=== PATIENT | male | born 1975 | race Caucasian/White ===

== ENCOUNTER 2019-04-27 10:14 | Day surgery (SDC) | payer BC ==
[2019-04-25 10:51] VITALS: BMI 30.4
--- NOTE | 2019-04-27 08:08 | HP ---
[facility] - Chief Complaint Chief Complaint: right knee pain - Past Medical History Allergies/Adverse Reactions: Allergies Allergy/AdvReac Type Severity Reaction Status Date / Time No Known Allergies Allergy Verified 04/25/19 10:51 - Current Medications Current Medications: Home Medications Medication Instructions Recorded Ibuprofen 600 mg PO PRN 04/25/19 Oxycodone HCl/Acetaminophen 1 tab PO Q6H #15 tablet MDD 4 04/27/19 [Percocet 5-325 mg Tablet] [facility] Physical Exam - Physical Examination General Appearance: Well Nourished, Well Developed, Alert & Oriented x3 ENT: Clear Lung: Normal air movement Extremities: Other (right knee- +swelling, + ttp medially, decr rom, + mcmurrays , nvi, MRI + mmt) Neurological: Intact, Alert, Oriented [facility] Impression/Plan - Impression/Plan Impression: right knee internal derangement Operative Procedure: right knee arthroscopy Date to be Performed: 04/27/19
[2019-04-27] MEDS ORDERED: MIDAZOLAM HCL 2 MG/2 ML SINGLE DOSE VIAL ONE (10:45)
[2019-04-27] MEDS ORDERED: PROPOFOL 20 ML ONE (10:45)
[2019-04-27] MEDS ORDERED: BUPIVACAINE HCL/PF 0.5% (5 MG/ML) 30 ML VIAL IJ ONE (13:18)
[2019-04-27] MEDS ORDERED: LIDOCAINE 1%/EPI 1:100000 (50 ML MULTI DOSE VIAL) INF ONE (13:18)
--- NOTE | 2019-04-27 13:32 | OP ---
Operative Note - Note: Operative Date: 04/27/19 ([facility]) Pre-Operative Diagnosis: right knee internal derangement Operation: right knee arthroscopy with PMM, debridement chondroplasty MFC, trochlea Post-Operative Diagnosis: Same as Pre-op Surgeon: Darwin Slaughter Anesthesia: General, Local Specimens Removed: shavings Estimated Blood Loss (mls): 5
[2019-04-27 16:06] VITALS: BP 141/92; PULSE 80; TEMP 98
--- NOTE | 2019-04-27 16:32 | OP ---
DATE OF OPERATION: 04/27/2019 PREOPERATIVE DIAGNOSIS: Internal derangement, right knee. POSTOPERATIVE DIAGNOSIS: Internal derangement, right knee. PROCEDURE: Arthroscopy, right knee with partial medial meniscectomy and debridement. SURGEON: Darwin Slaughter MD ANESTHESIA: LMA. CLOSURES: 4-0 nylon. COMPLICATIONS: None. CONDITION: To recovery room in stable condition. DESCRIPTION OF PROCEDURE: Patient was taken to the operating room on April 27, 2019. General anesthesia with LMA was administered by the anesthesiologist. Right lower extremity was prepped and draped in the usual sterile fashion. Medial and lateral infrapatellar portal sites were infiltrated with 1% Xylocaine with epinephrine. Both ports were then made with 15 blade followed by blunt trocar. Scope was placed in the lateral infrapatellar portal and up the suprapatellar pouch. The knee was inflated with a cocktail of 10 mL 1% Xylocaine, 10 mL 0.5% Marcaine, and 20 mL of arthroscopic saline. After allowing the anesthetic to work in the knee, the procedure was performed. Pouch was visualized to be clean. Medial and lateral gutters were visualized to be clean. The undersurface of the patella was found to be intact. The trochlea had a large area of grade 4 eburnation, and loose articular cartilage on the margins were debrided using the shaver. With valgus stress on the knee, the medial compartment was entered. The medial meniscus was visualized and probed and found to have a complex tear of its posterior horn. This was debrided back to smooth, stable meniscal tissue using meniscal biter and arthroscopic shaver. Medial femoral condyle was basically intact and small areas of grade 2-3 changes. The tibial plateau was also found to be intact. At 90 degrees, the ACL was visualized and probed and found to be intact. In the figure-4 position, the lateral compartment was entered. Lateral meniscus was visualized and probed and found to be intact. The lateral femoral condyle was run and found to be intact as was the lateral tibial plateau. The knee was irrigated with copious amounts of irrigation. Portals were then closed with 4-0 nylon after fluid was removed; 20 mL of 0.5% Marcaine was infused into the knee for postoperative analgesia. A sterile pressure dressing was placed over the knee. Patient awakened from anesthesia and transferred to recovery in stable condition. No complications. Estimated blood loss negligible. Donavon [id number]
--- NOTE | 2019-05-01 14:43 | PATH ---
Surgical Pathology Report Patient Name: QUEENIE THOMPSON Med. Rec. #: [id number] /Age/Gender: 1975 (Age: 44) / M Account: [id number] Location: [facility] Taken: 04/27/2019 Received: 04/30/2019 Reported: 05/01/2019 Physicians: Darwin Slaughter M.D. Specimen(s) Received RIGHT KNEE SHAVINGS Clinical History Internal derangement right knee Final Diagnosis RIGHT KNEE SHAVINGS: SYNOVIAL TISSUE AND FIBROCARTILAGINOUS TISSUE WITH FOCAL FIBROSIS AND DEGENERATIVE CHANGE. Electronically Signed Malia Hanna M.D. Gross Description Received in formalin, labeled "right knee shavings," is a 3.8 x 3.5 x 0.3 cm. aggregate of ghosh-yellow soft tissue fragments. A labor service representative portion is submitted in one cassette. /04/30/2019 saudi04/30/2019
== END 2019-04-27 16:00 | disposition home or self-care (01) ==
LOC: JASU-SURG 10:14
PROVIDERS: ATTEND Orthopaedic Surgery
PROC: 0SBC4ZZ Excision of Right Knee Joint, Percutaneous Endoscopic Approach (ICD-10-PCS; principal; 2019-04-27 12:30)
DX: M23.8X1 Other internal derangements of right knee (principal)
CPT/HCPCS: 88304-TC; 94760

== ENCOUNTER 2022-01-15 07:00 | Day surgery (SDC) | payer OTHER ==
[2022-01-11 18:12] VITALS: BMI 28.1
[2022-01-15] MEDS ORDERED: BUPIVACAINE HCL/EPINEPHRINE/PF 30 ML VIAL IJ ONE ×3 (07:20→07:56)
[2022-01-15] MEDS ORDERED: ACETAMINOPHEN INJECTION 100 ML IVPB ONE (07:28)
[2022-01-15] MEDS ORDERED: ACETAMINOPHEN 325 MG TABLET (FP) PO PRN (07:37)
[2022-01-15] MEDS ORDERED: IBUPROFEN 400 MG TABLET (FP) PO PRN (07:37)
[2022-01-15] MEDS ORDERED: BUPIVACAINE HCL/PF 0.25% (2.5MG/ML) 10 ML VIAL ONE (07:59)
[2022-01-15] MEDS ORDERED: ONDANSETRON 4 MG/2 ML VIAL IVPUSH PRN (08:33)
[2022-01-15] MEDS ORDERED: LACTATED RINGERS SOLUTION 1,000 ML IV SCH (08:45)
[2022-01-15] MEDS ORDERED: ONDANSETRON 4 MG/2 ML VIAL ONE (09:02)
[2022-01-15] MEDS ORDERED: FENTANYL CITRATE/PF 50 MCG/ML VIAL ONE (09:02)
[2022-01-15] MEDS ORDERED: oxyCODONE HCL 5 MG TABLET PO PRN (09:09)
[2022-01-15 10:10] VITALS: RESP 18
[2022-01-15 11:12] VITALS: BP 128/74; PULSE 64; TEMP 97.9
== END 2022-01-15 11:00 | disposition home or self-care (01) ==
LOC: FASU 07:00
PROVIDERS: ATTEND Orthopaedic Surgery
PROC: 0SBD4ZZ Excision of Left Knee Joint, Percutaneous Endoscopic Approach (ICD-10-PCS; principal; 2022-01-15 07:56)
DX: S83.232D Complex tear of medial meniscus, current injury, left knee, subsequent encounter (principal); M22.42 Chondromalacia patellae, left knee; M94.262 Chondromalacia, left knee; M65.9 Synovitis and tenosynovitis, unspecified; X58.XXXD Exposure to other specified factors, subsequent encounter
CPT/HCPCS: 94760

== ENCOUNTER 2022-06-22 04:47 | Day surgery (SDC) | payer OTHER ==
[2022-06-16 14:08] VITALS: BMI 29.7
[2022-06-22 12:53] VITALS: TEMP 97.3
[2022-06-23 06:57] VITALS: BP 125/70; PULSE 76; RESP 18
== END 2022-06-22 13:30 | disposition home or self-care (01) ==
LOC: JASU-ENDO 04:47
PROVIDERS: ATTEND Student in an Organized Health Care Education/Training Program
PROC: 0DBN8ZX Excision of Sigmoid Colon, Via Natural or Artificial Opening Endoscopic, Diagnostic (ICD-10-PCS; 2022-06-22)
PROC: 0DBM8ZX Excision of Descending Colon, Via Natural or Artificial Opening Endoscopic, Diagnostic (ICD-10-PCS; principal; 2022-06-22 11:00)
DX: Z12.11 Encounter for screening for malignant neoplasm of colon (principal); D12.4 Benign neoplasm of descending colon; D12.5 Benign neoplasm of sigmoid colon; I10 Essential (primary) hypertension
CPT/HCPCS: 88305-TC